=== PATIENT | female | born 1940 | race Caucasian/White ===

== ENCOUNTER → 2016-07-25 10:27 | Day surgery (SDC) | payer MEDICARE, OTHER ==
--- NOTE | 2016-07-14 13:11 | HP ---
ADMITTING HISTORY AND PHYSICAL: DATE OF ADMISSION: 07/25/16 AGE: 76 years, female. ADMITTING DIAGNOSIS: Bladder cancer. PLANNED PROCEDURE: Transurethral resection of bladder tumor, right retrograde, possible right stent insertion. SURGEON: Dr. Calderon. HISTORY OF PRESENT ILLNESS: Kasia Guajardo is a 76-year-old lady who had undergone transurethral resections of multiple high-grade superficially invasive bladder tumors. There was no evidence of muscle invasion and she subsequently received intravesical BCG. She recently underwent cystoscopy and was noted to have recurrent superficial ovarian papillary tumors in the right lateral wall of the bladder. A CT scan was obtained, which revealed some thickening in the bladder wall with mild right hydroureter but no evidence of any lymphadenopathy or any tumor outside the bladder. PAST MEDICAL HISTORY: Significant for: 1. Bladder cancer. 2. Hypothyroidism. 3. Hypertension, 4. High cholesterol. MEDICATIONS ON ADMISSION: 1. Lipitor 10 mg daily. 2. Valsartan 100 mg a day. 3. Synthroid 88 mcg daily. ALLERGIES AND INTOLERANCES: DILAUDID. PHYSICAL EXAMINATION GENERAL: A pleasant healthy-appearing elderly lady. VITAL SIGNS: Blood pressure is 144/90, pulse 59 per minute, temperature 96.1, oxygen saturation 96% on room air. LUNGS: Clear bilaterally. CARDIOVASCULAR: Regular rate and rhythm. S1, S2. ABDOMEN: Soft without masses. IMPRESSION: A 76-year-old lady with recurrent superficial-appearing bladder cancer and mild right hydroureter. PLAN: Plan is for transurethral resection of bladder tumor, right retrograde, and possible right stent insertion. CC: Ashwin Bang* [id number]/[facility] #: [id number] [address] HOSPITALShayy
[~2016-07-25 10:27] MED LIST: Buffered Lidocaine 1% SYRIN* 3 ML/SYR SYRINGE INTRADERM ONE; DiMENhydriNATE IV* 50 MG/ML VIAL IV PUSH PRN; DiMENhydriNATE IV* 50 MG/ML VIAL ONE; Furosemide IV* 10 MG/ML 2 ML VIAL (20 MG) ONE; Lidocaine 2% PF * 5 ML VIAL ONE; Ondansetron INJ* 2 MG/ML VIAL IV PRN; Ondansetron INJ* 2 MG/ML VIAL ONE; Oxybutynin TAB* 5 MG ONE; Oxybutynin TAB* 5 MG PO ONE; Propofol* 10 MG/ML 20 ML BTL IV PUSH ONE; cefTRIAXone(*) 2 GM ADDV.VIAL IVPB ONE; fentaNYL* 50 MCG/ML 2 ML VIAL (100 MCG VIAL) ONE; oxyCODONE/Acetamin 5/325 MG* TAB ONE; oxyCODONE/Acetamin 5/325 MG* TAB PO PRN
[2016-07-25] MEDS: fentaNYL* 50 MCG/ML 2 ML VIAL (100 MCG VIAL) IV PRN ×3 (13:12→13:31)
--- NOTE | 2016-07-25 14:13 | RAD ---
INDICATION: RIGHT retrograde pyelogram. Bladder carcinoma. COMPARISON: July 12, 2016 CT. TECHNIQUE: 13 seconds fluoroscopy. FINDINGS: RIGHT retrograde pyelogram is without evidence for significant calyceal blunting. RIGHT ureteral stent placed. IMPRESSION: Procedural fluoroscopy. CPT II Codes: 6045F
[2016-07-25 15:08] VITALS: BP 142/72
--- NOTE | 2016-07-26 13:50 | OP ---
DATE OF OPERATION: 07/25/16 - [facility] DATE OF : 36 - AGE: 76 years, female. SURGEON: Garcia Calderon MD ANESTHESIOLOGIST: Dr. Garduno ANESTHESIA: General. PRE-OPERATIVE DIAGNOSIS: Bladder cancer. POST-OPERATIVE DIAGNOSIS: Bladder cancer. OPERATIVE PROCEDURES: 1. Transurethral resection and fulguration of bladder tumors (greater than 5 cm.) 2. Right retrograde pyelogram and right stent insertion. COMPLICATIONS: None. POSTOPERATIVE CONDITION: Stable. INDICATIONS: Kasia Guajardo is a 76-year-old lady who had undergone transurethral resection of high grade superficially invasive bladder cancer. Recent cystoscopy had revealed what appeared to be recurrent tumors and a CT scan had revealed fullness of the right collecting system. OPERATIVE FINDINGS: Multiple areas of superficial-appearing transitional cell carcinoma in posterior bladder wall and right lateral wall. DESCRIPTION OF PROCEDURE: After induction of general anesthesia, the patient was placed in dorsal lithotomy position. Sequential compression devices were in place and functioning. Initial cystoscopy revealed what appeared to be multiple superficial-appearing recurrent tumors in the posterior wall and right lateral wall with no evidence of any muscle invasive-appearing tumors visually. A right retrograde pyelogram revealed mild fullness of the proximal right ureter with no evidence of any persistent filling defects noted. A 7-German stent was introduced and positioned under fluoroscopy with good proximal and distal positioning obtained. Next, biopsies were obtained and sent for histopathology and the resectoscope was introduced and all visible tumor was resected down to muscle. There was no evidence of bladder perforation, although the bladder lining was certainly thin in some places where the tumor had been resected. Hemostasis appeared satisfactory, and a 22-German Herr was introduced without difficulty and connected to a drainage bag. CC: Corey Lemon MD, [place] * [id number]/[facility] #: [id number] [facility]
== END | disposition home or self-care (01) ==
LOC: OR 10:27
PROVIDERS: ATTEND Urology
DX: C67.8 Malignant neoplasm of overlapping sites of bladder (principal); E03.9 Hypothyroidism, unspecified; I10 Essential (primary) hypertension; E78.00 Pure hypercholesterolemia, unspecified; M19.90 Unspecified osteoarthritis, unspecified site
CPT/HCPCS: 74420; 88305; A9270-GY; C1876; J0696; J1240; J1580; J1940; J2405; J2704; J3010

== ENCOUNTER 2017-01-04 05:54 | Day surgery (SDC) | payer MEDICARE, OTHER ==
--- NOTE | 2016-12-27 16:31 | HP ---
CC: Corey Lemon MD, [place]; Dr. Calderon HISTORY AND PHYSICAL: DATE OF ADMISSION: 01/04/17 ADMITTING DIAGNOSIS: Bladder cancer. PLANNED PROCEDURE: Cystoscopy, transurethral resection of bladder tumors. SURGEON: Dr. Calderon. HISTORY OF PRESENT ILLNESS: Malika rivin is a 76-year-old former smoker, who had originally been leigh luated in 2016 for a high-grade superficially invasive transitional cell carcinoma. She had undergo ne transurethral resection in a couple of occasions, followed by intravesical BCG treatments. A rec ent cystoscopy in October of 2016 revealed recurrent superficial appearing transitional cell tumor in the anterior bladder wall and an additional tumor in the posterior bladder neck. PAST MEDICAL HISTORY: Significant for: 1. Recurrent superficial bladder cancer. 2. Hypertension. 3. High cholesterol. 4. Hypothyroidism. MEDICATIONS ON ADMISSION: 1. Synthroid 88 mcg daily. 2. Lipitor 10 mg daily. 3. Valsartan 100 mg daily. ALLERGIES: DILAUDID. PHYSICAL EXAMINATION GENERAL: Pleasant, healthy-appearing elderly lady. VITAL SIGNS: Blood pressure is 150/84, pulse 57 per minute and regular, oxygen saturation 98% on ro om air. LUNGS: Clear bilaterally. CARDIOVASCULAR: Regular, rate, and rhythm. S1 and S2. ABDOMEN: Soft without masses. 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 PLANNED PROCEDURE: Cystoscopy and transurethral resection of bladder tumor. [id number]/[facility] #: [id number]
[~2017-01-04 05:54] MED LIST changes: +Buffered Lidocaine 0.9% SYRIN* 5 ML/SYR SYRINGE INTRADERM ONE; -Buffered Lidocaine 1% SYRIN* 3 ML/SYR SYRINGE INTRADERM ONE; -DiMENhydriNATE IV* 50 MG/ML VIAL IV PUSH PRN; -DiMENhydriNATE IV* 50 MG/ML VIAL ONE; -Furosemide IV* 10 MG/ML 2 ML VIAL (20 MG) ONE; -Lidocaine 2% PF * 5 ML VIAL ONE; -Ondansetron INJ* 2 MG/ML VIAL IV PRN; -Ondansetron INJ* 2 MG/ML VIAL ONE; -Oxybutynin TAB* 5 MG ONE; -Oxybutynin TAB* 5 MG PO ONE; -Propofol* 10 MG/ML 20 ML BTL IV PUSH ONE; -cefTRIAXone(*) 2 GM ADDV.VIAL IVPB ONE; -fentaNYL* 50 MCG/ML 2 ML VIAL (100 MCG VIAL) ONE; -oxyCODONE/Acetamin 5/325 MG* TAB ONE; -oxyCODONE/Acetamin 5/325 MG* TAB PO PRN
[2017-01-04] MEDS ORDERED: Dexamethasone IV* 4 MG/ML 1 ML (4 MG) IV SLOW PU ONE (06:00)
[2017-01-04] MEDS ORDERED: Famotidine IV* 10 MG/ML 2 ML (20 mg) IV ONE (06:00)
[2017-01-04] MEDS ORDERED: Dexamethasone IV* 4 MG/ML 1 ML (4 MG) ONE (06:04)
[2017-01-04] MEDS ORDERED: Buffered Lidocaine 0.9% SYRIN* 5 ML/SYR SYRINGE ONE (06:05)
[2017-01-04] MEDS ORDERED: Famotidine IV* 10 MG/ML 2 ML (20 mg) ONE (06:05)
[2017-01-04] MEDS ORDERED: cefTRIAXone(*) 2 GM ADDV.VIAL IVPB ONE (06:05)
[2017-01-04] MEDS ORDERED: fentaNYL* 50 MCG/ML 2 ML VIAL (100 MCG VIAL) IV PRN (07:08)
[2017-01-04] MEDS ORDERED: oxyCODONE TAB* 5 MG TAB PO PRN (07:08)
[2017-01-04] MEDS ORDERED: PROCHLORPERAZINE INJ 5 MG/ML 2 ML VIAL IV PRN (07:08)
[2017-01-04] MEDS ORDERED: HYDROcodone/ACETAMIN 5-325 MG* 1 TAB PO PRN (07:08)
[2017-01-04] MEDS ORDERED: Acetaminophen TAB* 325 MG PO PRN (07:08)
[2017-01-04] MEDS ORDERED: fentaNYL* 50 MCG/ML 2 ML VIAL (100 MCG VIAL) ONE (07:21)
[2017-01-04] MEDS ORDERED: Propofol* 10 MG/ML 20 ML BTL IV PUSH ONE (07:21)
[2017-01-04] MEDS ORDERED: Lidocaine 2% PF * 5 ML VIAL ONE (07:21)
[2017-01-04] MEDS ORDERED: Ondansetron INJ* 2 MG/ML VIAL ONE (08:09)
[2017-01-04] MEDS ORDERED: Furosemide IV* 10 MG/ML 2 ML VIAL (20 MG) ONE (08:22)
[2017-01-04] MEDS ORDERED: mitoMYcin PWD* 40 MG in Sterile Water for Inj* 40 ML IRRIGATION ONE (10:30)
--- NOTE | 2017-01-04 10:36 | OP ---
CC: Corey Lemon MD * DATE OF OPERATION: 01/04/17 - [facility] DATE OF : 36 SURGEON: Garcia Calderon MD. ANESTHESIOLOGIST: Dr. Genoveva Pelaez. ANESTHESIA: General. PRE-OP DIAGNOSIS: Recurrent bladder tumors. POST-OP DIAGNOSIS: Recurrent bladder tumors. OPERATIVE PROCEDURE: Transurethral resection and fulguration of bladder tumors (2 to 3 cm). COMPLICATIONS: None. BLOOD LOSS: Minimal. OPERATIVE FINDINGS: Papillary tumors at posterior bladder neck and right lateral bladder neck. No evidence of any muscle invasive appearing tumor. POSTOPERATIVE CONDITION: Stable. INDICATIONS: Kasia Guajardo is a 76-year-old lady with a history of recurrent superficial bladder cancer. DESCRIPTION OF PROCEDURE: After induction of general anesthesia, patient was placed in dorsal lithotomy position. Sequential compression devices were in place and functioning. Initial cystoscopy revealed normally located right and left ureteral orifices. The sites of previous tumor resections were visualized and there was scarring noted as excepted at those locations. There were 2 recurrent tumors noted, both in the area of the bladder neck encroaching into the proximal urethra. One was located at the posterior bladder neck and another one was on the right side of the bladder neck. In the posterior bladder wall, there was a small area of hyperemic mucosa which, on closer inspection, was noted to be consistent with just reactive changes with no tumor in that location. The remainder of the bladder was unremarkable. Using the resectoscope, all of the visible tumors were resected and sent for histopathology. The bed of the tumor area was fulgurated with cautery. At the end of the procedure, there was no remaining visible tumor and hemostasis appeared satisfactory. A 20-Telugu Herr catheter was placed for temporary bladder drainage. Patient tolerated the procedure satisfactorily and was transferred back to the recovery area in stable condition. [id number]/[facility] #: [id number] MTDD
[2017-01-04 12:04] VITALS: BP 133/59
== END 2017-01-04 12:37 | disposition home or self-care (01) ==
LOC: OR 05:54
PROVIDERS: ATTEND Urology
DX: C67.5 Malignant neoplasm of bladder neck (principal); I10 Essential (primary) hypertension; E78.00 Pure hypercholesterolemia, unspecified; E03.9 Hypothyroidism, unspecified; Z87.891 Personal history of nicotine dependence; Z88.5 Allergy status to narcotic agent
CPT/HCPCS: 88305; J0696; J1100; J1940; J2405; J2704; J3010; J9280

== ENCOUNTER → 2018-04-04 06:04 | Day surgery (SDC) | payer MEDICARE, OTHER ==
--- NOTE | 2018-03-21 20:04 | HP ---
CC: Dr. Corey Lemon [place]; Dr. Garcia Calderon* ADMITTING HISTORY AND PHYSICAL: DATE OF ADMISSION: 04/04/18 ADMITTING DIAGNOSIS: Recurrent bladder cancer. HISTORY OF PRESENT ILLNESS: Kasia Guajardo is an 78-year-old lady who had initially been evaluated over 2 years ago for a high-grade, superficially invasive bladder cancer. She has had multiple recurrences since the initial diagnosis with the last recurrence being in December 2016 when pathology again revealed high-grade, superficially invasive bladder cancer, but with no evidence of muscle invasion. She had 3 consecutive negative cystoscopies after that and a recent cystoscopy revealed what appeared to be recurrent papillary lesion surrounding the right ureteral orifice. A CT urogram was obtained, which revealed mild fullness of the right collecting system with possibility of a mass impinging on the right orifice. My plan is for right retrograde and right ureteral stent insertion and transurethral resection of the bladder lesion. PAST MEDICAL HISTORY: Significant for: 1. Recurrent bladder cancer. 2. High cholesterol. 3. Hypothyroidism. 4. Hypertension. MEDICATIONS: On admission: 1. Lipitor 10 mg daily. 2. Valsartan 100 mg once a day. 3. Synthroid 88 mcg once a day. ALLERGIES AND INTOLERANCES: DILAUDID. REVIEW OF SYSTEMS: She denies any chest pain or shortness of breath. There is no history of diabetes mellitus or any other major systemic illness. PHYSICAL EXAMINATION GENERAL: Reveals a pleasant elderly lady. VITAL SIGNS: Blood pressure is 136/80, pulse 53 per minute, oxygen saturation 97% on room air. LUNGS: Clear bilaterally. CARDIOVASCULAR: Regular rate and rhythm. S1, S2. ABDOMEN: Soft without masses. IMPRESSION: An 78-year-old lady with a former smoking history and with recurrent bladder tumors. PLAN: Planned procedure is right retrograde, right stent insertion, and transurethral resection of bladder tumors. [id number]/[facility] #: [id number] [facility] CENTERShayy
[~2018-04-04 06:04] MED LIST changes: +Dexamethasone IV* 4 MG/ML 1 ML (4 MG) ONE; +DiMENhydriNATE IV* 50 MG/ML VIAL IV PUSH PRN; +Iohexol 180 (CONTRAST) 10 ML SDV IV ONE; +Lactated Ringers 1000 ML Bag* 1,000 ML IV SCH; +Midazolam* 1 MG/ML 2 ML VIAL (2 MG) ONE; +Naloxone* 0.4 MG/ML 1 ML VIAL IV PRN; +Ondansetron INJ* 2 MG/ML VIAL IV PRN; +Ondansetron INJ* 2 MG/ML VIAL ONE; +Propofol* 10 MG/ML 20 ML BTL ONE; +cefTRIAXone(*) 2 GM ADDV.VIAL IVPB ONE; +fentaNYL* 50 MCG/ML 2 ML VIAL (100 MCG VIAL) IV PRN; +fentaNYL* 50 MCG/ML 2 ML VIAL (100 MCG VIAL) ONE; +mitoMYcin PWD* 40 MG in Sterile Water for Inj* 40 ML IRRIGATION ONE; +oxyCODONE/Acetamin 5/325 MG* TAB PO PRN
[2018-04-04 12:06] VITALS: BP 132/77
--- NOTE | 2018-04-04 15:56 | OP ---
DATE OF OPERATION: 04/04/18 - [facility] DATE OF : 36 SURGEON: Garcia Calderon MD ANESTHESIOLOGIST: Dr. Strange ANESTHESIA: General. PRE-OP DIAGNOSIS: Superficial recurrent bladder cancer. POST-OP DIAGNOSIS: Superficial recurrent bladder cancer. OPERATIVE PROCEDURE: Transurethral resection of bladder tumor (2 to 3 cm), right retrograde and right stent insertion. COMPLICATIONS: None. BLOOD LOSS: Less than 50 cc. STENT USED: 8-Uzbek stent, right ureter. POSTOPERATIVE CONDITION: Stable. 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 She was recently evaluated and noted to have what appears to be recurrent tumor on the right side of the trigone and is now being brought in for further evaluation and management of the same. DESCRIPTION OF PROCEDURE: After induction of general anesthesia, the patient was placed in dorsal lithotomy position. Sequential compression devices were in place and functioning. Initial evaluation revealed urethral stenosis. The bladder was examined. The right and left orifices are normal in position and configuration. On the right side, there appears to be papillary superficial- appearing tumor surrounding the area of the right orifice without actually obstructing it. The remainder of the bladder is unremarkable. Right retrograde pyelogram revealed very mild fullness of the right collecting system with no filling defects noted. The retrograde pyelogram was followed down all the way down to the distal ureter to make sure there were no filling defects in the distal ureter and none were noted. A guidewire was left in place in the right collecting system and the resectoscope was introduced. Transurethral resection of the bladder tumor on the right side of the trigone was carried out. Once all of the visible tumor had been resected and hemostasis was secured using an electrocautery, then an 8- Uzbek stent was introduced and positioned under fluoroscopy with good proximal and distal positioning obtained. A Herr catheter was placed for temporary bladder drainage. Patient tolerated the procedure satisfactorily and was transferred back to the recovery area in stable condition. [id number]/[facility] #: [id number] MTDD
== END | disposition home or self-care (01) ==
LOC: OR 06:04
PROVIDERS: ATTEND Urology
DX: N32.9 Bladder disorder, unspecified (principal); Z85.51 Personal history of malignant neoplasm of bladder; E03.9 Hypothyroidism, unspecified; E78.00 Pure hypercholesterolemia, unspecified; I10 Essential (primary) hypertension; F41.8 Other specified anxiety disorders
CPT/HCPCS: 74420; 88305; C2625; J0696; J1100; J2250; J2405; J2704; J3010; J9280